=== PATIENT | female | born 1985 | race Caucasian/White ===

== ENCOUNTER 2017-11-22 15:12 | Outpatient (REF) | payer MEDICAID, SELFPAY ==
[2017-11-22 19:19] LABS: Abs Immature Grans 0.01 k/cumm (0.0-0.09); Absolute Basophil Count 0.03 k/cumm (0.0-0.2); Absolute Eosinophil Count 0.17 k/cumm (0.0-0.7); Absolute Lymphocyte Count 1.46 k/cumm (1.2-3.4); Absolute Monocyte Count 0.57 k/cumm (0.11-0.7); Absolute Neutrophil Count 6.71 k/cumm (1.2-6.7); Basophils % 0.3; Eosinophils % 1.9; HCT 39.2 % (36.0-46.0); HGB 12.7 g/dL (12.0-15.5); Immature Grans % 0.1; Lymphocytes % 16.3; Mean Corp. HGB Concentration 32.4 g/dL (32.0-36.0); Mean Corpuscular Hemoglobin 31.1 pg (27.0-33.0); Mean Corpuscular Volume 96.1 fL (80-95); Mean Platelet Volume 11.8 fL (8.0-11.0); Monocytes % 6.4; Platelet Count 222 x1000/uL (130-400); RBC 4.08 m/cumm (4.00-5.20); White Blood Cell Count 8.95 k/cumm (4.4-10.8)
[2017-11-24 11:28] LABS: Lyme Ab w Rflx to Lyme Confirm Negative
== END 2017-11-22 15:32 ==
LOC: NCHCN 15:12
PROVIDERS: PCP Family Medicine; Visit Provider Nurse Practitioner Family
DX: R53.83 Other fatigue (principal)
CPT/HCPCS: 84443; 85025; 86618

== ENCOUNTER 2018-03-09 16:11 | Outpatient (REF) | payer MEDICAID, SELFPAY ==
--- NOTE | 2018-03-09 14:35 | PAPFT_PTH ---
PATIENT: LOLA AJ LOC: [facility] U#:[id number] AGE/SX: 32/F ROOM: RE03/09/[address]: Rita Giordano NP : 1985 BED: DIS: 03/09/2018 SPEC #: [id number] RECD: 03/09/18 18:12 STATUS: JODIE TONY #: [id number] QUETA: 03/09/18 14:[address]: Rita Giordano NP DEPT: [facility] Cytology RECD BY: Angelica Holden ENTERED: 03/09/18 18:12 SP TYPE: PAPFT OTHR DR: Briana Burns Tissues: 1 - CX/ENDOCX FOR PAP SMEARS Procedures: PAP THIN PREP/[facility] Screening HPV DNA PROBE Comments: [id number] (CHLAMYDIA/GC)
[2018-03-10 12:38] LABS: Chlamydia Result Negative; GC Result Negative; Specimen Description SEE COMMENTS
== END 2018-03-09 16:31 ==
LOC: LBN 16:11
PROVIDERS: PCP Family Medicine; Visit Provider Nurse Practitioner Women's Health
DX: Z12.4 Encounter for screening for malignant neoplasm of cervix (principal); Z11.51 Encounter for screening for human papillomavirus (HPV); Z11.3 Encounter for screening for infections with a predominantly sexual mode of transmission
CPT/HCPCS: 87491; 87591; 88142; 87624